=== PATIENT | female | born 1990 | race American Indian/Alaskan Native ===

== ENCOUNTER 2017-06-28 18:33 | Outpatient (CLI) | payer MEDICAID ==
[2017-06-28] MEDS ORDERED: LACTATED RINGERS 500 ML IV ONE (18:45)
[2017-06-28 18:52] VITALS: BP 100/58
[2017-06-28 19:50] LABS: Urine Drugs of Abuse Note Disclamer
[2017-06-28 20:20] LABS: Bilirubin,Urine NEG (Negative); Blood,Urine LG (Negative); Ketones,Urine NEG (Negative); Leukocyte Esterase,Urine LG (Negative); Mucus,Urine 1+ /HPF; Nitrite,Urine NEG (Negative)
[2017-06-28 20:27] LABS: Protein,Urine >500 mg/dL (Negative); RBC,Urine > 182.0 /HPF (0.0-6.0); WBC,Urine > 182.0 /HPF (0.0-6.0)
[2017-06-28] MEDS ORDERED: XYLOCAINE 1% MPF 5 mL INFILTRATI ONE (20:34)
[2017-06-28] MEDS ORDERED: ROCEPHIN IM ONE (20:35)
== END 2017-06-28 21:20 | disposition home or self-care (01) ==
LOC: TRG 18:33 → LD 18:33 → TRG 21:20
PROVIDERS: ATTEND Obstetrics & Gynecology
DX: Z34.93 Encounter for supervision of normal pregnancy, unspecified, third trimester (principal); Z3A.31 31 weeks gestation of pregnancy
CPT/HCPCS: 59025; 80307; 81001; 96360; 96372; J0696; J7120